=== PATIENT | male | born 1985 | race African-American/Black ===

== ENCOUNTER 2025-03-18 18:36 | Emergency (ER) | payer MEDICAID, SELFPAY ==
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
[2025-03-18 18:42] VITALS: BP 123/69; PULSE 74; RESP 18; TEMP 36.4; O2SAT 98; BMI 25.7
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
--- OUTSIDE RECORDS SUMMARY | 2025-03-18 22:25 | XMS_ITS | Encounter Summary ---
Author Organization [employer] Address [address] [place] [address] Care Team Providers Care Locomotive Crane Operator Name Role Phone Unavailable Primary Care Provider Unavailabl e Encounter Details Date Type Department Care Team (Latest Contact Info) Description 03/18/2025 Travel Social History Tobacco Use Types Packs/Day Years Used Date Smoking Tobacco: Never Passive Smoke Exposure: Never Smokeless Tobacco: Never Alcohol Use Standard Drinks/Week Comments Never 0 (1 standard drink = 0.6 oz pur e alcohol) Sex and Gender Information Value Date Recorded Sex Assigned at Male 05/27/2023 5:06 PM EST Legal Sex Male 4:47 PM EST Gender Identity Male 05/27/2023 5:07 PM EST Sexual Orientation Straight 03/18/2025 4: 42 PM EST documented as of this encounter Plan of Treatment Not on file documented as of this encounter Visit Diagnoses Not on filedocumented in this encounter
--- OUTSIDE RECORDS SUMMARY | 2025-03-18 22:25 | XMS_ITS | Clinical Summary ---
Author Organization [employer] Address [address] [place] [address] Care Team Providers Care Field Research Assistant Name Role Phone Unavailable Primary Care Provider Unavailabl e Allergies No known active allergies Encounters Date Type Department Care Team Description 03/18/2025 6:20 PM EST Office Visit [facility] [address] [place] [address] Raquel Berkowitz MD Lip laceration, initial encounter (Primary Dx) 03/18/2025 Travel from Last 3 Months Social History Tobacco Use Types Packs/Day Years [...] Orientation Straight 03/18/2025 4: 42 PM EST Last Filed Vital Signs Vital Sign Reading [...] Mass Index 25.49 03/18/2025 5:38 PM EST Plan of Treatment Health Maintenance Due Date Last Done Comments Depression Screening 1984 HIV Screening 1984 Lipid Panel 1984 SDOH Screening 1984 Disability Screening 1984 Family Planning (PISQ) 1999 HPV Vaccines (1 - Male 3-dos e series) 1999 Hepatitis C Screening 2002 DTaP/Tdap/Td Vaccines (1 - Tdap) 2003 Hepatitis B Vaccines (1 of 3 - 19+ 3-dose series) 2003 COVID-19 Vaccine (1 - 2023-2 5 season) 2025 Influenza Vaccine (#1) 2025 Alcohol/Substance Use Screening 03/18/2026 Tobacco Screening 03/18/2026 03/18/2025 Zoster Vaccines (1 of 2) 2034 RSV Patients and Pa tients Aged 60 years or older (1 - 1-dose 75+ series) 2059 HIB Vaccines Aged Out No longer eligi ble based on patient's age to complete this topic Hepatitis A Vaccines Aged Out No long er eligible based on patient's age to complete this topic IPV Vaccines Aged Out No longer eligi ble based on patient's age to complete this topic Meningococcal B Vaccine Aged Out No l onger eligible based on patient's age to complete this topic Meningococcal Vaccine Aged Out No kevin dena eligible based on patient's age to complete this topic Pneumococcal Vaccine: Pediat rics (0 to 5 Years) and At-Risk Patients (6 to 49) Years Aged Out No longer eligi ble based on patient's age to complete this topic RSV under 20 months Aged Out No longe r eligible based on patient's age to complete this topic Rotavirus Vaccines Aged Out No longer eligible based on patient's age to complete this topic Insurance [employer]
[2025-03-18 22:29] VITALS: BP 104/72; PULSE 72; RESP 18; TEMP 36.6; O2SAT 97
[2025-03-18] MEDS: Diphth,Pertus(ACell),Tet Adult 0.5 ML SYRINGE IM (23:33)
[2025-03-18 23:45] VITALS: BP 104/72; PULSE 72; RESP 18; TEMP 36.6; O2SAT 97
== END 2025-03-18 23:45 | disposition home or self-care (01) ==
PROVIDERS: Emergency Provider Emergency Medicine
DX: S00.531A Contusion of lip, initial encounter (principal); Z23 Encounter for immunization; W22.8XXA Striking against or struck by other objects, initial encounter; Y93.9 Activity, unspecified; Y92.9 Unspecified place or not applicable; Y99.9 Unspecified external cause status
CPT/HCPCS: 90471; 90715; 99284